=== PATIENT | female | born 1980 | race Caucasian/White ===

== ENCOUNTER 2017-03-23 10:01 | Outpatient (CLI) | payer OTHER ==
[2017-03-23] MEDS ORDERED: LEXISCAN IV ONE (10:19)
--- NOTE | 2017-03-23 11:22 | XRay Report ---
RIGHT KNEE RADIOGRAPHS INDICATION: Right knee pain. COMPARISON: None similar. FINDINGS: AP, lateral and oblique right knee radiographs demonstrate intact bony articulation and appearance. Minimal medial corner degenerative spurring may be present. Normal soft tissues without evidence of suprapatellar effusion. CONCLUSION: No acute right knee radiographic abnormality, as described. Thank you for the opportunity to participate in this patient's care.
--- NOTE | 2017-03-23 11:24 | XRay Report ---
BILATERAL HAND RADIOGRAPHS INDICATION: Bilateral hand pain. COMPARISON: None similar. FINDINGS: AP, lateral and oblique bilateral hand radiographs demonstrate normal bones, joints and soft tissues. CONCLUSION: Normal. Thank you for the opportunity to participate in this patient's care.
--- NOTE | 2017-03-23 11:25 | XRay Report ---
BILATERAL WRIST RADIOGRAPHS INDICATION: Bilateral wrist pain. COMPARISON: None similar. FINDINGS: AP, lateral and oblique bilateral wrist radiographs, 4 projections demonstrate intact carpal rows and also remainder imaged bones. Unremarkable soft tissues. CONCLUSION: Normal bilateral wrist radiographs, as described. Thank you for the opportunity to participate in this patient's care.
--- NOTE | 2017-03-23 11:34 | Mammography Report ---
BILATERAL DIGITAL DIAGNOSTIC MAMMOGRAM with CAD: 03/23/17 10:01:00 CLINICAL: Bilateral breast pain. COMPARISON:11/04/15 FINDINGS: The breasts are predominantly fatty with a few residual bilateral central fibroglandular densities.No mass, architectural distortion or suspicious calcifications. IMPRESSION: No mammographic evidence of malignancy. BI-RADS CATEGORY: Negative mammogram RECOMMENDATION: Clinical followup and routine mammographic screening based on ACS guidelines. I doubt that ultrasound would be helpful given the predominant fatty composition of the breasts. ACR BI-RADS MAMMOGRAPHIC CODES: 0 = Needs additional imaging evaluation; 1 = Negative; 2 = Benign; 3 = Probably benign; 4 = Suspicious; 5 = Malignant; 6 = Known biopsy-proven malignancy COMMENT: 1. Dense breast tissue, i.e., adenosis, fibrocystic changes, etc., may obscure an underlying neoplasm. 2. Approximately 10% of cancers are not detected with mammography. 3. A negative mammography report should not delay biopsy if a clinically suspicious mass is present. COMMENT: Patient follow-up letters are generated by our [employer] application.
== END 2017-03-23 10:02 | disposition home or self-care (01) ==
LOC: MAMMO 10:01
PROVIDERS: ATTEND Family Medicine Adult Medicine
DX: N64.4 Mastodynia (principal); M25.561 Pain in right knee; M25.531 Pain in right wrist; M25.532 Pain in left wrist; M25.541 Pain in joints of right hand; M25.542 Pain in joints of left hand; M25.562 Pain in left knee
CPT/HCPCS: 73110; 73130; 73562; G0204; J2785; 77066

== ENCOUNTER 2021-11-24 15:41 | Outpatient (CLI) | payer OTHER ==
--- NOTE | 2021-11-26 12:45 | Mammography Report ---
DIGITAL SCREENING MAMMOGRAM WITH CAD, 11/25/2021 CLINICAL INFORMATION / INDICATION: Routine screening mammography. TECHNIQUE: Digital bilateral 2D mammography was obtained in the craniocaudal and mediolateral obliqu e projections. This examination was interpreted with the benefit of Computer-Aided Detection analysis . COMPARISON: 03/23/2017 FINDINGS: Breast Density: There are scattered areas of fibroglandular density. No dominant mass, suspicious calcifications, or architectural distortion in either breast. No interval change. IMPRESSION: No mammographic evidence of malignancy. Follow up recommendation: Routine yearly screening mammogram. BI-RADS Category 1: NEGATIVE A "normal" or negative report should not discourage follow up or biopsy of a clinically significant f inding. A written summary of these findings will be mailed to the patient. The patient will be entered into a mammography reporting system which will generate a reminder letter for the patient's next appointmen t at the appropriate interval. The [employer] recommends yearly mammograms starting at age 40 and continuing as l benson as a woman is in good health. Breast MRI is recommended for women with an approximate 20-25% or greater lifetime risk of breast cancer, including women with a strong family history of breast or ova praful cancer or who have been treated for Hodgkin's disease. Signer Name: Malinda Petit MD Signed: 11/26/2021 12:40 PM Workstation Name: [email or web address]
== END 2021-11-24 15:42 | disposition home or self-care (01) ==
LOC: SPVWC 15:41
PROVIDERS: ATTEND Family Medicine Adult Medicine
DX: Z12.31 Encounter for screening mammogram for malignant neoplasm of breast (principal)
CPT/HCPCS: 77067